=== PATIENT | male | born 1985 | race Hispanic/Latino ===

== ENCOUNTER 2017-01-20 16:17 | Emergency (ER) | payer OTHER ==
[2017-01-20 16:55] VITALS: BMI 37.0
[2017-01-20 17:00] VITALS: RESP 18; TEMP 98.5
--- NOTE | 2017-01-20 18:16 | ED PDOC ---
Arrival/HPI - General Chief Complaint: Back Pain Time Seen by Provider: 01/20/17 17:45 Historian: Patient, Partner - History of Present Illness Narrative History of Present Illness (Text): 01/20/17 19:32 31yr old male presents today with low back pain radiating into right leg. pt states pain started friday morning after sleeping on someone elses bed. pt denies any recent trauma or injury. pt states he woke up with stiffness in the back. pt states he feels sharp pain across the lower back, worse on the right side. pt states pain radiates into the right leg. denies numbness, weakness, tingling in the extremity. pt denies bladder or bowel incontinence. no fever/ chills. no abdominal pain. no other complaints. Time/Duration: Other (1 day) Symptom Course: Worsening Quality: Aching, Tightness Severity Level: 9 Past Medical History - Provider Review Nursing Documentation Reviewed: Yes - Travel History Have you recently traveled outside [place] w/in the past 3 mons?: No - Infectious Disease Hx of Infectious Diseases: None - Tetanus Immunization Tetanus Immunization: Unknown - Musculoskeletal/Rheumatological Hx Back Pain: Yes Other/Comment: R ankle fx - Psychiatric Hx Substance Use: No - Anesthesia Hx Anesthesia: No Family/Social History - Physician Review Nursing Documentation Reviewed: Yes Family/Social History: Unknown Family HX Smoking Status: Never Smoked Hx Alcohol Use: Yes Frequency of alcohol use: Socially Hx Substance Use: No Allergies/Home Meds Allergies/Adverse Reactions: Allergies No Known Allergies Allergy (Verified 01/20/17 16:55) Review of Systems - Review of Systems Constitutional: absent: Fatigue, Fevers Respiratory: absent: SOB, Cough Cardiovascular: absent: Chest Pain, Palpitations Gastrointestinal: absent: Abdominal Pain, Nausea, Vomiting Genitourinary Male: absent: Dysuria, Frequency Musculoskeletal: Back Pain. absent: Arthralgias, Neck Pain Skin: absent: Rash, Pruritis Neurological: absent: Headache, Dizziness Psychiatric: absent: Anxiety, Depression Physical Exam Vital Signs Reviewed: Yes Vital Signs Temp Pulse Resp BP Pulse Ox 01/20/17 16:59 98.5 F 84 18 142/81 96 Temperature: Afebrile Blood Pressure: Normal Pulse: Regular Respiratory Rate: Normal Appearance: Positive for: Well-Appearing, Non-Toxic, Comfortable Pain Distress: None Mental Status: Positive for: Alert and Oriented X 3 - Systems Exam Head: Present: Atraumatic Mouth: Present: Moist Mucous Membranes Neck: Present: Normal Range of Motion Respiratory/Chest: Present: Clear to Auscultation, Good Air Exchange. No: Respiratory Distress, Accessory Muscle Use Cardiovascular: Present: Regular Rate and Rhythm, Normal S1, S2. No: Murmurs Abdomen: No: Tenderness, Rebound, Guarding Back: Present: Normal Inspection, Paraspinal Tenderness (+ bilateral lower lumbar tenderness). No: Midline Tenderness Upper Extremity: Present: Normal ROM Neurological: Present: GCS=15, Speech Normal Skin: Present: Warm, Dry, Normal Color. No: Rashes Psychiatric: Present: Alert, Oriented x 3 Medical Decision Making ED Course and Treatment: 01/20/17 19:51 Patient nontoxic well-appearing in no distress with stable vital signs. Toradol, Flexeril percocet Patient reassessment: Feeling better with medications ambulating with a steady gait. Muscle strength 5 out of 5 bilaterally. I advised to followup with the orthopedist within the next 2 days. Return if symptoms worsen persist or new symptoms develop Patient verbalizes understanding of discharge instructions and need for immediate followup. Impression: Back pain Motrin every 6 hours as needed for pain Flexeril one tablet every 8 hours as needed for muscle spasms: May cause drowsiness percocet; one tablet every 6 hours as needed for moderate to severe pain: May cause drowsiness Followup with the orthopedist within the next 2 days Followup with primary care physician within the next 2 days Return if symptoms worsen persist or if new symptoms develop - Medication Orders Current Medication Orders: Discontinued Medications Cyclobenzaprine HCl (Flexeril) 10 mg PO STAT STA Stop: 01/20/17 17:46 Last Admin: 01/20/17 17:58 Dose: 10 mg Ketorolac Tromethamine (Toradol) 60 mg IM STAT STA Stop: 01/20/17 17:46 Last Admin: 01/20/17 17:59 Dose: 60 mg Re-Assess: [facility] Pain Assessment Document 01/20/17 18:59 OCS (Rec: 01/20/17 19:12 OCS [id number]) Pain Reassessment Is this a pain reassessment? Yes Sleep Is patient sleeping during reassessment? No Presence of Pain Presence of Pain Yes Pain Scale Used Pain Scale Used Numeric Location Upper or Lower Lower Pain Location Body Site Back Oxycodone/Acetaminophen (Percocet 5/325 Mg Tab) 1 tab PO STAT STA Stop: 01/20/17 18:56 Last Admin: 01/20/17 19:12 Dose: 1 tab Disposition/Present on Arrival - Present on Arrival Any Indicators Present on Arrival: No History of DVT/PE: No History of Uncontrolled Diabetes: No Urinary Catheter: No History of Decub. Ulcer: No History Surgical Site Infection Following: None - Disposition Have Diagnosis and Disposition been Completed?: Yes Diagnosis: Back pain Disposition: HOME/ ROUTINE Disposition Time: 17:46 Patient Plan: Discharge Patient Problems: Current Active Problems Problem Status Onset Back pain Acute Condition: GOOD Discharge Instructions (ExitCare): Back Pain (ED) Additional Instructions: Motrin every 6 hours as needed for pain Flexeril one tablet every 8 hours as needed for muscle spasms: May cause drowsiness percocet; one tablet every 6 hours as needed for moderate to severe pain: May cause drowsiness Followup with the orthopedist within the next 2 days Followup with primary care physician within the next 2 days Return if symptoms worsen persist or if new symptoms develop Prescriptions: Cyclobenzaprine [Cyclobenzaprine HCl] 10 mg PO Q8 #10 tab Ibuprofen [Motrin] 600 mg PO Q6H PRN #20 tab PRN Reason: pain/fever reduction oxyCODONE/Acetaminophen [Percocet 5/325 mg Tab] 1 tab PO Q6H PRN #6 tab PRN Reason: moderate to severe pain Referrals: Alex Suh III, MD [Medical Doctor] - Follow up with primary BONILLA,KEYLA [Primary Care Provider] - Follow up with primary Rodrick Moody MD [Staff Provider] - Follow up with primary Izabel Piedra MD [Staff Provider] - Follow up with primary Forms: WORK NOTE
[2017-01-20] MEDS ORDERED: Oxycodone/Acetaminophen 5/325 mg Tab PO STA (18:55)
[2017-01-20 20:18] VITALS: BP 135/70; PULSE 81; O2SAT 97
== END 2017-01-20 19:45 | disposition home or self-care (01) ==
LOC: ED 16:17
DX: M54.9 Dorsalgia, unspecified (principal)
CPT/HCPCS: 96372; 99282; J1885